=== PATIENT | male | born 1965 | race Hispanic/Latino ===

== ENCOUNTER 2018-10-05 22:22 | Inpatient (IN) | payer OTHER, SELFPAY ==
[2018-10-05 23:10] LABS: #Lymphocytes 0.6 thou/uL (1.20-3.40); #Monocytes 0.7 thou/uL (0.11-0.59); #Neutrophils 10.6 thou/uL (1.40-6.50); %Basophils 0.2 % (0.0-1.0); %Eosinophils 0.3 % (0.0-10.0); %Lymphocytes 5.3 % (21.0-51.0); %Monocytes 5.5 % (0.0-10.0); %Neutrophils 88.7 % (42.0-75.0); Hemoglobin 16.1 g/dL (14.0-18.0); Mean Corpuscular HGB CONC 34.4 g/dL (32.0-36.0); Mean Corpuscular Hemoglobin 31.1 pg (27.0-31.0); Mean Corpuscular Volume 90.5 fL (78.0-98.0); Mean Platelet Volume 9.6 fL (7.4-10.4); Platelet Count 156 thou/uL (130-400); RBC Distribution Width 12.7 % (11.5-14.5); Red Blood Cell (RBC) Count 5.16 mill/uL (4.70-6.10)
[2018-10-05 23:34] LABS: Troponin I Less than 0.010 ng/mL (< 0.028)
--- NOTE | 2018-10-05 23:38 | RAD ---
SINGLE VIEW OF THE CHEST: 10/05/18 COMPARISON: None. HISTORY: Chest pain. FINDINGS: Single view of the chest shows a normal sized cardiomediastinal silhouette. There is no evidence of c onsolidation, mass, or pleural effusion. The bones are unremarkable. IMPRESSION: No evidence of acute cardiopulmonary disease. POS: [facility]
[2018-10-05 23:39] LABS: ALT (SGPT) 325 U/L (8-55); AST (SGOT) 178 U/L (5-34); Alkaline Phosphatase 153 U/L (40-150); Anion Gap 12 mmol/L (10-20); BUN (Urea Nitrogen) 11 mg/dL (8.4-25.7); Bilirubin, Total 6.6 mg/dL (0.2-1.2); CK (CPK) 81 U/L (30-200); Calc. Creatinine Clearance 0 mL/min (70-130); Calcium 8.7 mg/dL (7.8-10.44); Carbon Dioxide 23 mmol/L (22-29); Chloride 106 mmol/L (98-107); Estimated GFR-MDRD 69; Globulin 3.2 g/dL (2.4-3.5); Glucose 110 mg/dL (70-105); Protein, Total 7.2 g/dL (6.0-8.3); Sodium 137 mmol/L (136-145)
[2018-10-05 23:43] LABS: Lipase 7835 U/L (8-78)
[2018-10-06] MEDS ORDERED: Ondansetron PF 4 MG/2 ML Vial ONE (00:16)
[2018-10-06] MEDS ORDERED: Morphine 2 MG/ML SYRINGE ONE (00:16)
--- NOTE | 2018-10-06 01:06 | PDOC.FPRHP ---
- History of Present Illness Chief Complaint: abdominal pain History of Present Illness: The patient is a very pleasant 53YO gentleman with a PMH significant for HTN who presented to the ED with a chief complaint of progressively worsening abdominal pain over the last 2 days. The patient reports having episodic abdominal pain over the last year but stated that 2 days ago about 15 minutes after eating some fish and rice, he started having sharp epigastric abdominal pain that, over the last 2 days, progressed to the point of being unbearable at a 10/10 in severity which prompted him to come to the ED for further evaluation. The patient stated that the pain is exacerbated by taking a deep breath and reported that he took some ibuprofen at home for relief but said that it did not help. He endorsed some associated nausea, diaphoresis and decreased PO intake. The patient denies any chest pain, SOB, or fever/chills. He also denied any significant EtOH use but was told that his cholesterol was high this past April. 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 He denied any tobacco or drug use and endorsed occasional EtOH use. - Review of Systems General: reports: weight/appetite/sleep changes. denies: fever/chills, fatigue Eyes: denies: eye pain, vision changes ENT: reports: other (no sore throat). denies: nasal congestion Respiratory: reports: cough. denies: shortness of breath Cardiovascular: denies: chest pain, palpitation, edema Gastrointestinal: reports: nausea, abdominal pain. denies: vomiting, diarrhea, constipation, GI bleeding Genitourinary: reports: other (no frequency). denies: dysuria Skin: denies: rashes, itching Musculoskeletal: reports: pain (in his knees (chronic)) Neurological: denies: numbness, syncope, weakness Psychological: denies: anxiety, depression - Vital signs BP: 102/62 HR: 57 RR: 18 Tmax: 97.8F Pox: 97% on RA Wt: 86.18 kg - Physical Exam Constitutional: NAD, awake, alert and oriented, well developed HEENT: normocephalic and atraumatic, conjunctiva clear, grossly normal vision, grossly normal hearing, MMM, oropharynx clear Neck: supple, FROM Heart: RRR, normal S1/S2, pulses present, no edema Lungs: CTAB, no respiratory distress, good air movement, no rales/rhonchi, no wheezing Abdomen: soft, bowel sounds present, other (TTP over entire upper abdomen; + Damon's sign) Musculoskeletal: normal structure, ROM grossly normal Neurological: no focal deficit -Neurological: symmetric facial movements Skin: no rash/lesions, good turgor, no jaundice Heme/Lymphatic: no unusual bruising or bleeding Psychiatric: normal mood and affect, good judgment and insight, intact recent and remote memory FMR H&P: Results - Labs Result Diagrams: 10/06/18 04:29 10/06/18 04:29 Lab results: WBC 12.0 thou/uL (4.8-10.8) H 10/05/18 23:01 Hgb 16.1 g/dL (14.0-18.0) 10/05/18 23:01 Hct 46.7 % (42.0-52.0) 10/05/18 23:01 MCV 90.5 fL (78.0-98.0) 10/05/18 23:01 Plt Count 156 thou/uL (130-400) 10/05/18 23:01 Neutrophils % 88.7 % (42.0-75.0) H 10/05/18 23:01 Sodium 137 mmol/L (136-145) 10/05/18 23:01 Potassium 4.0 mmol/L (3.5-5.1) 10/05/18 23:01 Chloride 106 mmol/L (98-107) 10/05/18 23:01 Carbon Dioxide 23 mmol/L (22-29) 10/05/18 23:01 BUN 11 mg/dL (8.4-25.7) 10/05/18 23:01 Creatinine 1.11 mg/dL (0.6-1.3) 10/05/18 23:01 Glucose 110 mg/dL (70-105) H 10/05/18 23:01 Calcium 8.7 mg/dL (7.8-10.44) 10/05/18 23:01 Total Bilirubin 6.6 mg/dL (0.2-1.2) H 10/05/18 23: AST 178 U/L (5-34) H 10/05/18 23: ALT 325 U/L (8-55) H 10/05/18 23:01 Alkaline Phosphatase 153 U/L (40-150) H 10/05/18 23: Creatine Kinase 81 U/L (30-200) 10/05/18 23: CK-MB (CK-2) 1.0 ng/mL (0-6.6) 10/05/18 23: Serum Total Protein 7.2 g/dL (6.0-8.3) 10/05/18: Albumin 4.0 g/dL (3.5-5.0) 10/05/18 23: Lipase 7835 U/L (8-78) H 10/05/18 23: LDH- 282 - EKG Interpretation EKG: NSR - Radiology Interpretation Chest x-ray Status: report reviewed by me (no acute cardiopulmonary findings) FMR H&P: A/P - Problem List (1) Acute pancreatitis due to calculus of common bile duct Current Visit: Yes Status: Suspected Code(s): K85.10 - BILIARY ACUTE PANCREATITIS WITHOUT NECROSIS OR INFECTION (2) HTN (hypertension) Current Visit: Yes Status: Chronic Code(s): I10 - ESSENTIAL (PRIMARY) HYPERTENSION - Plan 53YO gentleman w/ no significant PMH who presented to the ED with a CC of progressively worsening abdominal pain over the last 2 days who was found to have acute pancreatitis. Acute pancreatitis: - Initial labwork significant for a lipase of 7.835. LFTs and total bilirubin also elevated so a RUQ was performed to evaluate for possible gallstone pancreatitis as the patient has no other significant risk factors. - U/S official read pending but significant for gallbladder wall thickening and a possible gallstone in the cystic duct. - Will make NPO and start on IVFs with LR @ 150mL/hr. - Will continue IV morphine and zofran PRN for pain and nausea. - Will get a repeat CMP, lipase, and total bili in the AM. - Will consider consulting GI and/or general surgery pending U/S official read. No need for urgent consultation as patient is afebrile and HD stable. HTN: - Aware, BP has been well-controlled since presentation. - Will resume home meds once tolerating PO. FMR H&P: Upper Level - Pertinent history 53 yo M with PMHx HTN and HLD presents with cc of epigastric pain that started 1 -2 months ago but acutely worsened 2 days ago. He reports it started as a bloating/fullness that would come and go and was worsened by eating. Then 2 days ago, the pain came on and has been constant since that time. He endorses nausea and diaphoresis but denies any vomiting. He denies fever, chills. He denies constipation. He tried ibuprofen with no relief. No position seems to make it better and pain is exacerbated by deep breaths. - Pertinent findings VSS Gen: awake, alert, appears slightly uncomfortable HEENT: muddy sclera, dry MM, trachea midline CV: RRR, no murmur noted RESP: CTAB ABD: soft, diffusely tender mostly in mid-epigastrum, equivocal Damon's sign, no McBurney's point tenderness, slight guarding when palpating epigastrum, no rebound EXT: no edema, pulses full and equal - Plan Date/Time: 10/06/18 0106 53 yo M with pancreatitis/cholecystitis/choledocholithiasis 1. Pancreatitis: s/p 1L in ED. Will give additional 1L and continue aggressive fluids. Morphine PRN pain control. 2. Cholecystitis/choledocholithiasis: Dr. Gambino notified and recommended fluids, pain mgmt and notify GI first thing in the morning. Kivalina's score 0. Formal sono read pending but GB wall thickened, visible stone with debris in GB and possible obstruction of cystic duct. 2. HTN: Home BP meds. 3. HLD: Will check FLP to evaluate TAG. Not on meds at home. NPO in anticipation of ERCP/MRCP/surgical management in the a.m. I, Tiera Gaines MD, PGY-3, have evaluated this patient and agree with findings/ plan as outlined by graphics intern resident. Pertinent changes/additions are listed here. Attending Addendum - Attending Addendum Date/Time: 10/06/18 1300 I personally evaluated the patient and discussed the management with Dr. Narayan. I agree with the History, Examination, Assessment and Plan documented above with any addition or exceptions noted below. The patient presented to the ER with worsening abdominal pain. He was found to have a lipase over 7000, elevated Tbili and u/s suspicious for stone in cystic duct. Surgery and GI are being consulted. Pt will need lap anne and likely ercp. Pain is controlled better this morning.
[2018-10-06] MEDS ORDERED: Lactated Ringer's 1,000 ML IV SCH (02:15)
[2018-10-06] MEDS ORDERED: Ondansetron PF 4 MG/2 ML Vial IVP PRN (02:15)
[2018-10-06] MEDS: Lactated Ringer's 1,000 ML IV SCH ×4 (03:01→21:00)
[2018-10-06 03:16] VITALS: BMI 28.3
[2018-10-06] MEDS: Morphine 4 MG/ML VIAL SLOW IVP PRN ×2 (04:14→18:15)
[2018-10-06 05:07] LABS: #Lymphocytes 0.5 thou/uL (1.20-3.40); #Monocytes 0.5 thou/uL (0.11-0.59); %Basophils 0.1 % (0.0-1.0); %Eosinophils 0.1 % (0.0-10.0); %Lymphocytes 6.2 % (21.0-51.0); %Neutrophils 87.6 % (42.0-75.0); Hemoglobin 14.1 g/dL (14.0-18.0); Mean Corpuscular HGB CONC 33.8 g/dL (32.0-36.0); Mean Corpuscular Hemoglobin 30.7 pg (27.0-31.0); Mean Corpuscular Volume 90.8 fL (78.0-98.0); Mean Platelet Volume 9.6 fL (7.4-10.4); Platelet Count 138 thou/uL (130-400); RBC Distribution Width 12.6 % (11.5-14.5); Red Blood Cell (RBC) Count 4.58 mill/uL (4.70-6.10); White Blood Cell (WBC) Count 7.9 thou/uL (4.8-10.8)
[2018-10-06 05:25] LABS: ALT (SGPT) 274 U/L (8-55); AST (SGOT) 140 U/L (5-34); Albumin 3.5 g/dL (3.5-5.0); Alkaline Phosphatase 147 U/L (40-150); Anion Gap 11 mmol/L (10-20); BUN (Urea Nitrogen) 12 mg/dL (8.4-25.7); Bilirubin, Total 5.5 mg/dL (0.2-1.2); Calc. Creatinine Clearance 106 mL/min (70-130); Calcium 8.3 mg/dL (7.8-10.44); Carbon Dioxide 23 mmol/L (22-29); Cardiac Risk 3.9 (Less than 4.5); Chloride 107 mmol/L (98-107); Cholesterol 153 mg/dl (< 200 Desired); Estimated GFR-MDRD 83; Globulin 2.8 g/dL (2.4-3.5); Glucose 99 mg/dL (70-105); HDL Cholesterol 39 mg/dL (>60 Neg Risk); LDL Cholesterol, Calculated 104 mg/dL; Phosphorus 3.2 mg/dL (2.3-4.7); Potassium 3.9 mmol/L (3.5-5.1); Protein, Total 6.3 g/dL (6.0-8.3); Sodium 137 mmol/L (136-145); Triglycerides 49 mg/dL (Less than 150)
[2018-10-06 05:40] LABS: Lipase 4288 U/L (8-78)
[2018-10-06] MEDS: Piperacillin/Tazobactam 3.375 GM in Sodium Chloride 0.9% 100 ML IVPB SCH ×4 (05:48→23:43)
[2018-10-06] MEDS ORDERED: Enoxaparin Sodium 40 MG/0.4 ML SYRINGE SC SCH (09:00)
--- NOTE | 2018-10-06 09:21 | ULT ---
PRELIMINARY REPORT/[facility]/EMERGENTY AFTER-HOURS PROCEDURE US Abdomen Limited, Right Upper Quadrant EXAM DATE/TIME: 10/06/2018 12:50 AM CLINICAL HISTORY: 53 years old, male; Pain and abnormal findings; Abnormal lab test; Elevated liver enzymes; Other: Upp er abd pain TECHNIQUE: Real-time ultrasound of the abdomen with image documentation. Examination was focused on the right up per quadrant. COMPARISON: No relevant prior studies available. FINDINGS: Liver: Unremarkable liver, no focal abnormality. Gallbladder: Several shadowing gallstones within the gallbladder, one in the region of the gallbladde r neck. The gallbladder appears partially contracted. Possible gallbladder wall thickening, measuring up to 6 mm. Evaluation limited due to the contracted state of the gallbladder. No definite pericholecystic fluid. Common bile duct: No biliary dilation, common duct measures 3.4 mm. Pancreas: Visible pancreas is essentially unremarkable. Some of the pancreas is obscured by bowel gas . Right kidney: Images of the right kidney show no hydronephrosis. Possible 5 mm calculus in the mid to upper right kidney. IMPRESSION: 1. Cholelithiasis, see details above. 2. No biliary dilation. 3. Other findings discussed above. Thank you for allowing us to participate in the care of your patient. Dictated and Authenticated by: Sree Headley MD 10/06/2018 1:42 AM Central Time ([place] & [place]) FINAL REPORT EMERGENCY AFTER HOURS RIGHT UPPER QUADRANT ULTRASOUND: Date: 10/06/18 INDICATION: Right upper quadrant abdominal pain. IMPRESSION: I agree with the preliminary report provided by [facility]. There is a coarse echotexture to the liver possibly reflective of underlying chronic liver disease. There are multiple stones within a contracted gallbladder. No sonographic Damon's sign is reported. Common bile duct within normal limits, measuring 3.4 mm. There is right nephrolithiasis. POS: [facility]
--- NOTE | 2018-10-06 11:35 | MRI ---
MRI ABDOMEN WITHOUT CONTRAST: Date: 10/06/18 INDICATION: Rule out stone in the common bile duct with pain on and off for several months. COMPARISON: Right upper quadrant ultrasound dated 10/06/18. TECHNIQUE: Multiplanar, multisequence MR images were obtained of the abdomen without IV contrast utilizing MRCP protocol. FINDINGS: The common bile duct measures up to 4.0 mm. No definite intraluminal filling defect is grossly eviden t. No intrahepatic biliary ductal dilatation is noted. The liver is slightly enlarged, measuring 17.9 cm in greatest longitudinal dimension. The spleen measures 13.3 cm. There is fluid present within th e anterior pararenal space. No drainable fluid collection is evident. There is mild ascites within th e abdomen. There is a small cyst within the superior pole of the right kidney. No hydronephrosis is e vident. Adrenal glands are normal appearing. There are small stones within a contracted gallbladder. There is some signal dropout within the liver on the [id number] sequences. No definite bone marrow signal abnormality is evident. IMPRESSION: 1. Hepatosplenomegaly with fatty infiltration. 2. Cholelithiasis. 3. No visible filling defect is evident within the common bile duct. 4. Edema within the anterior pararenal space is suspicious for presence of possible pancreatitis. 5. Small suspected cysts involving superior pole of right kidney. POS: [facility]
--- NOTE | 2018-10-06 15:57 | CON ---
DATE OF CONSULTATION: HISTORY OF PRESENT ILLNESS: The patient is a 53-year-old male, who reports a 2- to 3-day history of severe epigastric pain associated with vomiting. His pain was nonradiating. He has had the pain approximately 2 years, but it came on intensively 2 days ago. It has been off and on for the last 2 years. He denies any weight loss, any fever, chills. PAST MEDICAL HISTORY: Significant for hypertension. PAST SURGICAL HISTORY: Negative. MEDICATIONS: Lisinopril 10 mg p.o. daily. ALLERGIES: NO KNOWN ALLERGIES. SOCIAL HISTORY: He does not smoke. Drinks 1 beer per week. FAMILY HISTORY: Negative for GI or liver disease. REVIEW OF SYSTEMS: Ten systems reviewed and were negative except for above. PHYSICAL EXAMINATION: GENERAL: Shows a well-developed, well-nourished male, in no acute distress. VITAL SIGNS: Temperature is 97.6, pulse 61, respiratory rate 16, blood pressure 102/65. HEENT: Unremarkable. NECK: Supple. CHEST: Clear. CARDIOVASCULAR: Regular rate and rhythm without murmurs or gallops. ABDOMEN: Soft, tender in the epigastrium without rebound or guarding. Bowel sounds are present, normoactive. RECTAL: Deferred. EXTREMITIES: Normal. NEUROLOGIC: Nonfocal. LABORATORY DATA: Laboratories show essentially normal CBC. Chemistries on admission showed total bilirubin 6.6, AST 178, ALT 325, alk phos 153. Repeat 4 hours later showed total bilirubin 5.5, AST 140, ALT 274 with an alk phos of 147. Lipase was 7835 with a repeat of 4288. Abdominal ultrasound reported as still pending, but discussion with the radiologist, the patient has common bile duct of 3.4 mm, some coarse echogenicity of the liver and a contracted gallbladder full of stones. ASSESSMENT: 1. Gallstone pancreatitis. 2. Hypertension. RECOMMENDATIONS: Since the patient's CBD is so small and the LFTs are trending down, I would recommend to proceed with a cholecystectomy with associated intraoperative cholangiogram and if needed ERCP. Job ID: [id number]
[2018-10-06] MEDS ORDERED: Morphine 4 MG/ML VIAL SLOW IVP PRN (18:05)
[2018-10-06] MEDS: Enoxaparin Sodium 40 MG/0.4 ML SYRINGE SC SCH (20:54)
--- NOTE | 2018-10-06 23:07 | CON ---
DATE OF CONSULTATION: 10/06/2018 CHIEF COMPLAINT: Abdominal pain. HISTORY OF PRESENT ILLNESS: Mr. Woods is a 53-year-old man with a history of intermittent right upper quadrant and epigastric pain for many years, who had onset of his typical pain 3 days before admission. He states that usually this goes away but this time, the pain did not and instead became increasingly severe to the point that he came into the emergency room. He had nausea, but no vomiting, and was sweaty and had chills. He was found to have evidence of pancreatitis on labs and gallstones on ultrasound. He does not drink alcohol except rarely in social situations. He states since being admitted to the hospital, his pain and nausea have improved. His typical abdominal pain in the past has been triggered by eating and this current episode came on shortly after eating as well. He has no known drug allergies and takes lisinopril. PAST MEDICAL HISTORY: Hypertension. PAST SURGICAL HISTORY: None. FAMILY HISTORY: Diabetes. SOCIAL HISTORY: He does not smoke or use illicit drugs. He drinks only occasionally and not to excess. REVIEW OF SYSTEMS: A 10-system review of systems is negative except per HPI. PHYSICAL EXAMINATION: VITAL SIGNS: The patient has been afebrile since his admission, heart rate 83, respirations 20, 93% saturations on room air, blood pressure 109/67. GENERAL: Reveals a pleasant man, in no acute distress. He is not flushed or toxic in appearance. He is slightly jaundiced and has mild icterus. HEENT: Unremarkable. NECK: Supple without lymphadenopathy or thyroid nodules. HEART: Regular in its rate and rhythm without murmurs, rubs, or gallops. LUNGS: Clear to auscultation bilaterally. ABDOMEN: Soft and nondistended. He is tender to palpation in the epigastrium, greater than right upper quadrant. He does not exhibit rigidity, rebound, or guarding. States that his pain is much better than at the time of his admission. EXTREMITIES: Warm and well perfused without edema. NEUROLOGIC: No focal deficits. PSYCHIATRIC: Alert, oriented, and appropriate. LABORATORY DATA: White count was initially elevated at 12, but has come down to 7.9. Hematocrit is 41.6, platelets 138. Electrolytes are unremarkable. Bilirubin has gone from 6.6 on admission to 5.5 this morning. AST and ALT have likewise come down slightly to 140 and 274, and lipase has gone from 7835 to 4288. Abdominal ultrasound showed an unremarkable liver with several shadowing gallstones within the gallbladder and possible gallbladder wall thickening, but no definite pericholecystic fluid and no common bile duct dilatation. The rest of the pancreas appeared unremarkable although somewhat obscured by bowel gas. An abdominal MRI was also obtained, which showed cholelithiasis, but no visible filling defect in the common bile duct. ASSESSMENT: Gallstone pancreatitis, which appears clinically to be resolving. I have recommended laparoscopic cholecystectomy with intraoperative cholangiogram. If he is found to have retained stone in his common bile duct, then postoperative ERCP would be recommended. The procedure of laparoscopic cholecystectomy and its inherent risks were discussed with the patient and his family. These risks include but are not limited to bleeding, infection, risks of anesthesia, damage to nearby structures including bowel, liver, and bile duct, need for other procedures and need for open surgery. He understands and accepts these risks and wishes to proceed. He is on scheduled Zosyn, which will be continued perioperatively. All of his questions were answered. He is scheduled tomorrow for his surgery. Job ID: [id number]
[2018-10-07] MEDS: Lactated Ringer's 1,000 ML IV SCH ×4 (03:55→21:29)
[2018-10-07] MEDS: Morphine 4 MG/ML VIAL SLOW IVP PRN (04:14)
--- NOTE | 2018-10-07 05:34 | PDOC.FM ---
- Subjective Subjective: Pt. states that his abdominal pain is approximately a 3/10. He denies nausea, vomiting, sob, or chest pain. He states understanding of his surgery today. - Objective MAR Reviewed: Yes Vital Signs & Weight: Vital Signs (12 hours) Temp Pulse Resp BP Pulse Ox 10/07/18 04:00 98.4 F 79 16 120/72 94 L 10/07/18 00:00 98.3 F 84 16 111/67 93 L 10/06/18 20:00 98.2 F 84 16 114/68 93 L Weight Weight 84.425 kg I&O: 10/05/18 10/06/18 10/07/18 06:59 06:59 06:59 Intake Total 1240 1656 Balance 1240 1656 Result Diagrams: 10/07/18 05:13 10/07/18 05:13 <Rafael Schilling - Last Filed: 10/07/18 09:29> - Objective Vital Signs & Weight: Vital Signs (12 hours) Temp Pulse Resp BP Pulse Ox 10/07/18 14:20 98.4 F 84 16 142/86 H 92 L 10/07/18 08:20 98.3 F 77 16 132/80 95 10/07/18 04:00 98.4 F 79 16 120/72 94 L Weight Weight 84.425 kg I&O: 10/06/18 10/07/18 10/08/18 06:59 06:59 06:59 Intake Total 1240 3686 Output Total 725 Balance 1240 2961 Result Diagrams: 10/07/18 05:13 10/07/18 05:13 <Mary Lou Yni - Last Filed: 10/07/18 15:25> Phys Exam - Physical Examination Constitutional: NAD HEENT: moist MMs Neck: no JVD, full ROM Respiratory: no wheezing, no rales, clear to auscultation bilateral Cardiovascular: RRR, no significant murmur Gastrointestinal: soft, no distention, positive bowel sounds mild tenderness to palpation diffusely Musculoskeletal: no edema, pulses present Neurological: non-focal, moves all 4 limbs Psychiatric: normal affect, A&O x 3 Skin: cap refill <2 seconds <Rafael Schilling - Last Filed: 10/07/18 09:29> Dx/Plan (1) HTN (hypertension) Code(s): I10 - ESSENTIAL (PRIMARY) HYPERTENSION Status: Chronic (2) Acute pancreatitis due to calculus of common bile duct Code(s): K85.10 - BILIARY ACUTE PANCREATITIS WITHOUT NECROSIS OR INFECTION Status: Suspected - Plan Plan: This is a 53 yo male with a PMH of HTN Acute gallstone pancreatitis -Initial elevated lipase, LFTs, and total bilirubin have been trending down and pt's pain is controlled -Dr. Peters and Dr. Gambino are on board -Pt has been consented and Dr. Gambino is planning on laparoscopic cholecystectomy today. -Pt. is still NPO with ice chips and we are continuing LR -PRN morphine for pain control and prn zofran for nausea -MRCP shows a cholilithiasis and a 4mm CBD HTN -Resume meds when pt can tolerate PO -WNL on no medications <Rafael Schilling - Last Filed: 10/07/18 09:29> (1) Acute pancreatitis due to calculus of common bile duct Code(s): K85.10 - BILIARY ACUTE PANCREATITIS WITHOUT NECROSIS OR INFECTION Status: Suspected (2) HTN (hypertension) Code(s): I10 - ESSENTIAL (PRIMARY) HYPERTENSION Status: Chronic <Mary Lou Yin - Last Filed: 10/07/18 15:25> Attending Addendum - Attending Addendum Date/Time: 10/07/18623 I personally evaluated the patient and discussed the management with Dr. Schilling. I agree with the History, Examination, Assessment and Plan documented above with any addition or exceptions noted below. Patient will be having a lap anne today. Abdominal pain is controlled. <Mary Lou Yin - Last Filed: 10/07/18 15:25>
[2018-10-07] MEDS: Piperacillin/Tazobactam 3.375 GM in Sodium Chloride 0.9% 100 ML IVPB SCH ×4 (05:42→23:44)
[2018-10-07 05:50] LABS: ALT (SGPT) 199 U/L (8-55); AST (SGOT) 70 U/L (5-34); Albumin 3.5 g/dL (3.5-5.0); Alkaline Phosphatase 161 U/L (40-150); Anion Gap 10 mmol/L (10-20); BUN (Urea Nitrogen) 12 mg/dL (8.4-25.7); Bilirubin, Total 2.1 mg/dL (0.2-1.2); Calc. Creatinine Clearance 102 mL/min (70-130); Calcium 8.6 mg/dL (7.8-10.44); Carbon Dioxide 24 mmol/L (22-29); Chloride 108 mmol/L (98-107); Estimated GFR-MDRD 79; Glucose 77 mg/dL (70-105); Potassium 3.7 mmol/L (3.5-5.1); Protein, Total 6.5 g/dL (6.0-8.3); Sodium 138 mmol/L (136-145)
[2018-10-07 06:08] LABS: #Lymphocytes 0.5 thou/uL (1.20-3.40); #Monocytes 0.4 thou/uL (0.11-0.59); #Neutrophils 5.6 thou/uL (1.40-6.50); %Eosinophils 0.4 % (0.0-10.0); %Lymphocytes 8.2 % (21.0-51.0); %Monocytes 5.5 % (0.0-10.0); %Neutrophils 85.9 % (42.0-75.0); Hemoglobin 14.1 g/dL (14.0-18.0); Lipase 1658 U/L (8-78); Mean Corpuscular HGB CONC 34.3 g/dL (32.0-36.0); Mean Corpuscular Hemoglobin 31.1 pg (27.0-31.0); Mean Corpuscular Volume 90.7 fL (78.0-98.0); Mean Platelet Volume 9.9 fL (7.4-10.4); PLT Morphology Comment Appears Decreased; Platelet Count 118 thou/uL (130-400); RBC Distribution Width 12.5 % (11.5-14.5); RBC Morphology Normal; Red Blood Cell (RBC) Count 4.53 mill/uL (4.70-6.10); White Blood Cell (WBC) Count 6.6 thou/uL (4.8-10.8)
[2018-10-07] MEDS ORDERED: Ondansetron PF 4 MG/2 ML Vial ONE (10:50)
[2018-10-07] MEDS ORDERED: Glycopyrrolate 0.2 MG/ML 5 ML SYRINGE ONE (10:50)
[2018-10-07] MEDS ORDERED: PROPOFOL 200 MG/20 ML VIAL ONE (10:50)
[2018-10-07] MEDS ORDERED: Lidocaine 1% PF 5 ML VIAL ONE (10:50)
[2018-10-07] MEDS ORDERED: Dexamethasone 20 MG/5 ML VIAL ONE (10:50)
[2018-10-07] MEDS ORDERED: Bupivacaine/Epinephrine 0.25% 30 ML VIAL ONE (11:35)
[2018-10-07] MEDS ORDERED: Iothalamate Meglumine 60% 50 ML VIAL FS ONE (11:35)
[2018-10-07] MEDS ORDERED: Fentanyl 100 MCG/2 ML VIAL ONE (12:23)
[2018-10-07] MEDS ORDERED: Promethazine HCl 25 MG/ML VIAL SLOW IVP PRN (13:29)
[2018-10-07] MEDS ORDERED: Ondansetron HCl/PF 4 MG/2 ML Vial IVP PRN (13:29)
[2018-10-07] MEDS ORDERED: Promethazine HCl 25 MG/ML VIAL IM PRN (13:29)
--- NOTE | 2018-10-07 13:55 | RAD ---
CHOLANGIOGRAM INTRAOPERATIVE 2 VIEWS: 10/07/2018 HISTORY: A 53-year-old male with cholelithiasis. FINDINGS: Contrast injection into the cystic duct stump demonstrates a normal caliber common bile duct, common hepatic duct, and lower hepatic ducts and branches. No filling defect is seen. Contrast fills the s econd stage of the duodenum. No extravasation. IMPRESSION: Normal cholangiogram. POS: [facility]
[2018-10-07] MEDS: Enoxaparin Sodium 40 MG/0.4 ML SYRINGE SC SCH (20:14)
[2018-10-07] MEDS: HYDROcodone/Acetaminophen 5/325 mg Tablet PO PRN (23:44)
[2018-10-08] MEDS: Lactated Ringer's 1,000 ML IV SCH ×4 (03:33→13:21)
[2018-10-08] MEDS: Piperacillin/Tazobactam 3.375 GM in Sodium Chloride 0.9% 100 ML IVPB SCH ×2 (05:00→11:11)
--- NOTE | 2018-10-08 05:33 | PDOC.FM ---
- Subjective Subjective: Pt states that his pain is improved. He reports some pain over incisions. He denies bm, passing lori, but states he has been urinating ok. He tolerated PO intake last night. - Objective MAR Reviewed: Yes Vital Signs & Weight: Vital Signs (12 hours) Temp Pulse Resp BP Pulse Ox 10/08/18 04:00 98.3 F 78 18 133/85 94 L 10/08/18 00:00 98.6 F 83 18 128/81 95 10/07/18 20:00 98.3 F 78 18 119/76 94 L Weight Weight 84.425 kg I&O: 10/06/18 10/07/18 10/08/18 06:59 06:59 06:59 Intake Total 1240 3686 Output Total 725 Balance 1240 2961 Result Diagrams: 10/08/18 04:18 10/08/18 04:18 Phys Exam - Physical Examination Constitutional: NAD HEENT: moist MMs Respiratory: no wheezing, clear to auscultation bilateral Cardiovascular: RRR, no significant murmur Gastrointestinal: soft, no distention, positive bowel sounds mildly tender, no rebound Musculoskeletal: no edema, pulses present Neurological: non-focal, moves all 4 limbs Psychiatric: normal affect, A&O x 3 Skin: cap refill <2 seconds Dx/Plan (1) HTN (hypertension) Code(s): I10 - ESSENTIAL (PRIMARY) HYPERTENSION Status: Chronic (2) Acute pancreatitis due to calculus of common bile duct Code(s): K85.10 - BILIARY ACUTE PANCREATITIS WITHOUT NECROSIS OR INFECTION Status: Suspected - Plan Plan: This is a 53 yo male with a PMH of HTN Acute gallstone pancreatitis -Initial elevated lipase, LFTs, and total bilirubin have been trending down and pt's pain is controlled -Dr. Peters and Dr. Gambino are on board -Pt went for cholecystectomy yesterday with intraoperative cholangiogram that shows patent CBD, intact duct system, and proper emptying into duodenum -Pt has full liquid diet and we will discontinue LR once pt. has tolerated food well -Pt has PO pain control at this point. -MRCP shows a cholilithiasis and a 4mm CBD HTN -Restarting lisinopril 10 mg today (home dose) -BP continues to be WNL
[2018-10-08 05:40] LABS: #Lymphocytes 0.8 thou/uL (1.20-3.40); #Monocytes 0.6 thou/uL (0.11-0.59); #Neutrophils 9.3 thou/uL (1.40-6.50); %Basophils 0.1 % (0.0-1.0); %Eosinophils 0.4 % (0.0-10.0); %Lymphocytes 7.7 % (21.0-51.0); %Monocytes 5.9 % (0.0-10.0); %Neutrophils 85.9 % (42.0-75.0); Mean Corpuscular HGB CONC 32.9 g/dL (32.0-36.0); Mean Corpuscular Hemoglobin 29.7 pg (27.0-31.0); Mean Corpuscular Volume 90.3 fL (78.0-98.0); Mean Platelet Volume 10.3 fL (7.4-10.4); Platelet Count 141 thou/uL (130-400); RBC Distribution Width 12.6 % (11.5-14.5); Red Blood Cell (RBC) Count 4.71 mill/uL (4.70-6.10); White Blood Cell (WBC) Count 10.8 thou/uL (4.8-10.8)
[2018-10-08 05:56] LABS: ALT (SGPT) 162 U/L (8-55); AST (SGOT) 57 U/L (5-34); Albumin 3.6 g/dL (3.5-5.0); Alkaline Phosphatase 148 U/L (40-150); Anion Gap 10 mmol/L (10-20); BUN (Urea Nitrogen) 10 mg/dL (8.4-25.7); Bilirubin, Total 1.6 mg/dL (0.2-1.2); Calc. Creatinine Clearance 111 mL/min (70-130); Calcium 8.8 mg/dL (7.8-10.44); Carbon Dioxide 25 mmol/L (22-29); Chloride 104 mmol/L (98-107); Estimated GFR-MDRD 87; Globulin 3.3 g/dL (2.4-3.5); Glucose 97 mg/dL (70-105); Lipase 359 U/L (8-78); Potassium 3.5 mmol/L (3.5-5.1); Protein, Total 6.9 g/dL (6.0-8.3); Sodium 135 mmol/L (136-145)
[2018-10-08] MEDS: HYDROcodone/Acetaminophen 5/325 mg Tablet PO PRN ×2 (08:08→12:32)
[2018-10-08] MEDS ORDERED: Lisinopril 10 MG TAB PO SCH (09:00)
[2018-10-08 11:59] VITALS: BP 142/83; TEMP 98.5
--- NOTE | 2018-10-10 18:22 | DIS ---
DATE OF ADMISSION: 10/06/2018 DATE OF DISCHARGE: 10/08/2018 RESIDENT: Rafael Schilling DO. ADMITTING ATTENDING: Mary Lou Yin MD. DISCHARGE ATTENDING: Gerald Louis MD. CONSULTS: 1. Dr. Peters, GI. 2. Dr. Gambino, General Surgery. PROCEDURES PERFORMED: 1. Laparoscopic cholecystectomy. 2. . 3. MRCP showing hepatosplenomegaly with fatty infiltrate, cholelithiasis, no filling defect, edema within the anterior pararenal spaces presence of possible pancreatitis, small suspected cyst involving superior pole of the right kidney. 4. Chest x-ray, no evidence of cardiopulmonary disease. 5. Ultrasound of gallbladder showing cholelithiasis, no biliary dilatation. PRIMARY DIAGNOSIS: Acute gallstone pancreatitis. SECONDARY DIAGNOSIS: Hypertension. HISTORY OF PRESENT ILLNESS/HOSPITAL COURSE: This is a 53-year-old male with past medical history of hypertension, who presented to the ED with worsening abdominal pain over the last few days. He reported similar episodes in the past. The patient was diagnosed with gallstone pancreatitis with an initial lipase of 7835, lactate dehydrogenase of 282, AST and ALT of 178 and 325 respectively, and total bilirubin of 6.6 . The patient went back for the above laparoscopic cholecystectomy performed by Dr. Brice Gambino. The patient's pain significantly improved after the surgery. The patient tolerated the food and passed gas prior to discharge. DISCHARGE MEDICATIONS: 1. Ruso 5 q.4 p.r.n. pain. 2. Lisinopril 10 mg p.o. daily. Discontinue medications: None. DISCHARGE INSTRUCTIONS: 1. Location: Home. 2. Diet: Low-fat diet. 3. Activity: As tolerated. 4. Followup: With Dr. Gambino and primary care physician in 1 to 2 weeks. Job ID: [id number]
== END 2018-10-08 16:02 | disposition home or self-care (01) | DRG 418 ==
LOC: ERS 22:22 → T4-A 10-06 02:34
PROVIDERS: ADMIT Family Medicine; ATTEND Family Medicine
PROC: 0FT44ZZ Resection of Gallbladder, Percutaneous Endoscopic Approach (ICD-10-PCS; principal; 2018-10-07)
PROC: BF101ZZ Fluoroscopy of Bile Ducts using Low Osmolar Contrast (ICD-10-PCS; 2018-10-07)
DX: K85.10 Biliary acute pancreatitis without necrosis or infection (principal); K80.10 Calculus of gallbladder with chronic cholecystitis without obstruction; I10 Essential (primary) hypertension; E78.00 Pure hypercholesterolemia, unspecified
CPT/HCPCS: 36415; 47532; 71045; 74181; 76705; 80053; 80061; 82550; 82553; 83615; 83690; 83735; 84100; 84484; 85025; 88304; 93005; 96361; 96374; 96375; J1100; J1610; J1650; J2001; J2270; J2405; J2543; J2704; J3010; J7050; Q9961